=== PATIENT | female | born 2000 | race Caucasian/White ===

== ENCOUNTER 2022-10-10 05:47 | Emergency (ER) | payer OTHER, SELFPAY ==
--- NOTE | ~2022-10-10 | CT_ITS ---
EXAMINATION: CT brain wo con DATE: 10/10/2022 06:18 INDICATION: Headache. Dizziness. Head injury. TECHNIQUE: Computed tomography (CT) of the head was performed without intravenous contrast. The mA wa s adjusted according to patient size. Iterative reconstruction technique was employed. The dose-lengt h product was 605.33 mGy-cm. COMPARISON: None FINDINGS: There is a 3.6 x 2.0 cm mass with fat and calcification in right middle cranial fossa media l to right temporal lobe, consistent with a dermoid. There is a large distribution of fat attenuation in the right sylvian fissure, sulci in the right frontal and parietal lobes, and anterior interhemis pheric fissure consistent with rupture of the dermoid. There is no intracranial hemorrhage or acute i schemic infarct. The ventricles are normal in size. There is mild mucosal thickening in the ethmoid s inuses. The mastoid air cells are normal. IMPRESSION: 1. Ruptured dermoid in right middle cranial fossa with pieces of the mass distributed in the right sy lvian fissure, sulci in the right frontal and temporal lobes, and anterior interhemispheric fissure. Reviewed, dictated and finalized at location E. IMPRESSION: 1. Ruptured dermoid in right middle cranial fossa with pieces of the mass distr ibuted in the right sylvian fissure, sulci in the right frontal and temporal lo bes, and anterior interhemispheric fissure.
--- NOTE | ~2022-10-10 | CT_ITS ---
EXAMINATION: CT cervical spine wo con DATE: 10/10/2022 06:18 INDICATION: Head injury. TECHNIQUE: Computed tomography (CT) of the cervical spine was performed without intravenous contrast. Automated exposure control and iterative reconstruction technique were employed. The dose-length pro duct was 538.30 mGy-cm. COMPARISON: None FINDINGS: Bone alignment is normal. Vertebral body heights and intervertebral disc heights are normal . There is multilevel mild facet joint osteoarthritis. At C7-T1, there is severe bilateral facet join t osteoarthritis. No neural foraminal stenosis or central canal stenosis. IMPRESSION: 1. No fracture. 2. Cervical facet joint osteoarthritis. Reviewed, dictated and finalized at location E.
[2022-10-10 05:49] VITALS: BP 140/85; PULSE 85; RESP 16; TEMP 36.3; O2SAT 100
--- NOTE | 2022-10-10 06:02 | ED.GENADULT ---
HPI - General Adult General Chief complaint: Head Injury Stated complaint: head injury, dizziness Time Seen by Provider: 10/10/22 05:56 History of Present Illness HPI narrative: Patient is a 22-year-old female presents the emergency department with chief complaint of headache neck pain dizziness patient reports that around 11 PM last night a box fell from a shelf at work and struck her in the head and neck patient reports no loss of consciousness but reports that she has had dizziness afterwards and reports that it is worse whenever she bends forward the patient reports that she had nausea but no vomiting patient denies any other injuries denies laceration Related Data Home Medications Medication Instructions Recorded Confirmed etonogestrel 68 mg subdermal subdermal 10/10/22 implant (Nexplanon) fluoxetine 20 mg tablet 20 mg PO DAILY 10/10/22 10/10/22 Allergies Allergy/AdvReac Type Severity Reaction Status Date / Time amoxicillin Allergy Rash Verified 10/10/22 05:54 Sulfa (Sulfonamide Allergy Rash Verified 10/10/22 05:54 Antibiotics) Review of Systems Review of Systems: A 10 system review of systems was completed on the patient and is negative except for what is stated in the HPI. Nursing and ancillary documentation was reviewed. Exam Narrative: GENERAL: Well-appearing, well-nourished, and in no acute distress. HEAD: Normocephalic, atraumatic. EYES: PERRLA and EOMI. ENT: Nares clear, no rhinorrhea or epistaxis. Mucous membranes moist. NECK: Supple. CHEST: Clear to auscultation. No respiratory distress. HEART: Regular rate and rhythm. No murmur heard. Normal peripheral pulses. ABDOMEN: Soft, nontender, nondistended, normal active bowel sounds. EXTREMITIES: Normal range of motion. No edema. SKIN: Warm, dry, no rash. NEURO: No focal deficits. Alert and oriented x3. GCS 15 PSYCH: Normal mood and affect. Course Vital Signs Vital signs: Vital Signs Temperature 36.3 C L 10/10/22 05:49 Pulse Rate 85 10/10/22 05:49 Respiratory Rate 16 10/10/22 05:49 Blood Pressure 140/85 10/10/22 05:49 Pulse Oximetry 100 10/10/22 05:49 Oxygen Delivery Room Air 10/10/22 05:49 Temperature 36.3 C L 10/10/22 05:49 Pulse Rate 76 10/10/22 07:14 Respiratory Rate 20 10/10/22 07:14 Blood Pressure 138/80 10/10/22 07:14 Pulse Oximetry 100 10/10/22 07:14 Oxygen Delivery Room Air 10/10/22 05:49 Medical Decision Making MDM Narrative Medical decision making narrative: Differential diagnosis includes closed head injury, cervical spine fracture, subarachnoid, subdural CT head was obtained that showed evidence of a possible ruptured dermoid cyst CT cervical spine showed no evidence of C-spine fracture. Case was discussed with our local neurosurgeon who felt the patient would be better served being transferred to a higher level of care Case was discussed with Dr. Izaguirre in the trauma service since there was a traumatic involvement the patient was excepted to the [facility] as a level 4 trauma Vital Signs Vital Signs: Vital Signs Temperature 36.3 C L 10/10/22 05:49 Pulse Rate 85 10/10/22 05:49 Respiratory Rate 16 10/10/22 05:49 Blood Pressure 140/85 10/10/22 05:49 Pulse Oximetry 100 10/10/22 05:49 Oxygen Delivery Room Air 10/10/22 05:49 Temperature 36.3 C L 10/10/22 05:49 Pulse Rate 76 10/10/22 07:14 Respiratory Rate 20 10/10/22 07:14 Blood Pressure 138/80 10/10/22 07:14 Pulse Oximetry 100 10/10/22 07:14 Oxygen Delivery Room Air 10/10/22 05:49 Discharge Plan Discharge Clinical Impression: Closed head injury, Dermoid cyst of brain Patient Disposition: Acute Care Hospital Condition: Stable Prescriptions: No Action fluoxetine 20 mg Tablet 20 mg PO DAILY Nexplanon 68 mg Implant SUBDERMAL Follow-up/Referrals: PHYSICIAN NOT ON STAFF,NONSTAFF [Non-Staff] - Time of Disposition: 07:38
[2022-10-10 07:14] VITALS: BP 138/80; PULSE 76; RESP 20; O2SAT 100
[2022-10-10 08:26] VITALS: O2SAT 100
== END 2022-10-10 08:27 | disposition short-term general hospital (02) ==
PROVIDERS: Emergency Provider Emergency Medicine; PCP Internal Medicine
DX: S09.90XA Unspecified injury of head, initial encounter (principal); D33.2 Benign neoplasm of brain, unspecified; W20.8XXA Other cause of strike by thrown, projected or falling object, initial encounter; Y99.0 Civilian activity done for income or pay
CPT/HCPCS: 70450; 72125; 99285